=== PATIENT | male | born 2000 | race Two or more races ===

== ENCOUNTER 2021-10-18 22:36 | Emergency (ER) | payer MEDICAID, OTHER ==
[~2021-10-18] VITALS: Ht 172.7 cm; Wt 72.6 kg
[2021-10-19] MEDS ORDERED: KETOROLAC TROMETH 30 MG/ML 1ML VIAL IM ONE (03:30)
[2021-10-19 03:33] VITALS: BP 141/79
[2021-10-19] MEDS ORDERED: IBUP600T27 PO (04:12)
[2021-10-19] MEDS ORDERED: METH500T22 PO (04:12)
[2021-10-19] MEDS ORDERED: ACETAMINOPHEN 500 MG TAB PO ONE (04:15)
[2021-10-19] MEDS ORDERED: METHOCARBAMOL 500 MG TAB PO ONE (04:15)
== END 2021-10-19 04:51 | disposition home or self-care (01) ==
LOC: ER 22:36
DX: S16.1XXA Strain of muscle, fascia and tendon at neck level, initial encounter (principal); W22.8XXA Striking against or struck by other objects, initial encounter; Y93.89 Activity, other specified; Y92.89 Other specified places as the place of occurrence of the external cause; Y99.8 Other external cause status
CPT/HCPCS: 96372; 99283; J1885